=== PATIENT | male | born 1960 | race Caucasian/White ===

== ENCOUNTER 2016-08-14 12:58 | Outpatient (CLI) | payer MEDICARE | END 2016-08-14 12:59 | disposition home or self-care (01) | LOC: DI 12:58 | PROVIDERS: ATTEND Internal Medicine | DX: I42.9 Cardiomyopathy, unspecified (principal); I51.7 Cardiomegaly | CPT/HCPCS: 93306 ==

== ENCOUNTER 2016-10-10 09:28 | Outpatient (CLI) | payer MEDICARE ==
[2016-10-10 18:00] LABS: BASOPHILS % (AUTO) 0.3 %; EOSINOPHILS # (AUTO) 0.3 10^3/uL (0.0-0.7); EOSINOPHILS % (AUTO) 3.9 %; HCT - HEMATOCRIT 46.2 % (42.0-52.0); HGB - HEMOGLOBIN 15.3 g/dL (14.0-18.0); LYMPHOCYTES # (AUTO) 1.8 10^3/uL (1.5-3.5); LYMPHOCYTES % (AUTO) 26.5 %; MEAN CORPUSCULAR HEMOGLOBIN 32.7 pg (27.0-31.0); MEAN CORPUSCULAR HGB CONC 33.1 g/dL (32.0-36.0); MEAN PLATELET VOLUME 10.6 fL (7.4-11.4); MONOCYTES # (AUTO) 0.5 10^3/uL (0.0-1.0); MONOCYTES % (AUTO) 7.7 %; NEUTROPHILS # (AUTO) 4.3 10^3/uL (1.5-6.6); NEUTROPHILS % (AUTO) 61.6 %; NUCLEATED RED BLOOD CELLS AUTO 0.1 /100WBC; RED BLOOD COUNT 4.67 10^6/uL (4.70-6.10); RED CELL DISTRIBUTION WIDTH 13.6 % (12.0-15.0); UNCORRECTED WHITE BLOOD COUNT 6.9 x10^3/uL; WHITE BLOOD COUNT 6.9 x10^3/uL (4.8-10.8)
[2016-10-10 18:28] LABS: ALBUMIN/GLOBULIN RATIO 1.7 (1.0-2.2); BILIRUBIN,TOTAL 0.8 mg/dL (0.2-1.0); BUN - BLOOD UREA NITROGEN 17 mg/dL (6-20); CALCIUM 9.5 mg/dL (8.5-10.3); CARBON DIOXIDE - CO2 28 mmol/L (21-32); CHLORIDE 99 mmol/L (101-111); CHOL/HDL RATIO 4.3 (<5.0); CHOLESTEROL 211 mg/dL; CREATININE 0.7 mg/dL (0.6-1.2); GFR - MDRD 116 (>89); GLUCOSE 336 mg/dL (70-100); HDL CHOLESTEROL 49 mg/dL; POTASSIUM 5.1 mmol/L (3.5-5.0); SODIUM 136 mmol/L (135-145); TOTAL PROTEIN 7.8 g/dL (6.7-8.2); TRIGLYCERIDES 77 mg/dL; VLDL CHOLESTEROL 15 mg/dL
[2016-10-10 18:33] LABS: HEMOGLOBIN A1C 1.22 g/dL
== END 2016-10-10 09:29 | disposition home or self-care (01) ==
LOC: LAB.F 09:28
PROVIDERS: ATTEND Nurse Practitioner Family
DX: E10.9 Type 1 diabetes mellitus without complications (principal); I10 Essential (primary) hypertension
CPT/HCPCS: 36415; 80053; 80061; 82043; 83036; 84443; 85025

== ENCOUNTER 2016-10-29 08:00 | Outpatient (CLI) | payer MEDICARE ==
[2016-10-29 18:01] LABS: CALCIUM 9.2 mg/dL (8.5-10.3); CREATININE 0.7 mg/dL (0.6-1.2); POTASSIUM 4.2 mmol/L (3.5-5.0)
== END 2016-10-29 08:01 | disposition home or self-care (01) ==
LOC: LAB.F 08:00
PROVIDERS: ATTEND Nurse Practitioner Family
DX: E87.5 Hyperkalemia (principal)
CPT/HCPCS: 36415; 80048

== ENCOUNTER 2017-11-13 09:04 | Outpatient (CLI) | payer MEDICARE ==
[2017-11-13 17:35] LABS: ALBUMIN 4.5 g/dL (3.2-5.5); ALBUMIN/GLOBULIN RATIO 1.5 (1.0-2.2); ALKALINE PHOSPHATASE 79 IU/L (42-121); ALT ALANINE AMINOTRANSFERASE 21 IU/L (10-60); AST ASPARTATE AMINOTRANSFERASE 21 IU/L (10-42); BILIRUBIN,TOTAL 0.6 mg/dL (0.2-1.0); BUN - BLOOD UREA NITROGEN 16 mg/dL (6-20); CALCIUM 9.2 mg/dL (8.5-10.3); CARBON DIOXIDE - CO2 29 mmol/L (21-32); CHLORIDE 100 mmol/L (101-111); CHOL/HDL RATIO 3.4 (<5.0); CHOLESTEROL 182 mg/dL; CREATININE 0.6 mg/dL (0.6-1.2); GFR - MDRD 138 (>89); GLUCOSE 197 mg/dL (70-100); HDL CHOLESTEROL 53 mg/dL; LDL CHOLESTEROL,CALCULATED 116 mg/dL; LDL/HDL RATIO 2.2 (<3.6); SODIUM 137 mmol/L (135-145); TOTAL PROTEIN 7.5 g/dL (6.7-8.2); VLDL CHOLESTEROL 13 mg/dL
[2017-11-13 18:41] LABS: HB2 TOTAL 15.7 g/dL; HEMOGLOBIN A1C 0.97 g/dL; HEMOGLOBIN A1C % 7.8 % (4.6-6.2)
== END 2017-11-13 09:05 | disposition home or self-care (01) ==
LOC: LAB.F 09:04
PROVIDERS: ATTEND Nurse Practitioner Family
DX: E78.5 Hyperlipidemia, unspecified (principal); E10.9 Type 1 diabetes mellitus without complications; I10 Essential (primary) hypertension; I48.91 Unspecified atrial fibrillation
CPT/HCPCS: 36415; 80053; 80061; 82043; 83036; 83721; 84443

== ENCOUNTER 2018-06-14 22:56 | Emergency (ER) | payer MEDICARE ==
--- NOTE | 2018-06-15 00:16 | ED Physician Documentation ---
PD HPI NVD - Stated complaint Stated Complaint: VOMITING - Chief complaint Chief Complaint: Abd Pain - History obtained from History obtained from: Patient - History of Present Illness Timing - onset: Enter time (07:00), Today Timing - details: Abrupt onset, Waxing and waning Associated symptoms: Near syncope / syncope. No: Fever Similar symptoms before: Has not had sx before Recently seen: Not recently seen - Additonal information Additional information: nausea, vomiting since 7 AM. tonight, was lying on couch and felt nauseas, stood up and on way to bathroom he became lightheaded, went to ground (doesnt think he lost consciousness). he subsequently has developed generalized headache. Review of Systems Constitutional: reports: Reviewed and negative Eyes: reports: Reviewed and negative Cardiac: reports: Reviewed and negative Respiratory: reports: Reviewed and negative GI: reports: Nausea, Vomiting. denies: Abdominal Pain Musculoskeletal: denies: Neck pain Neurologic: reports: Headache. denies: Generalized weakness, Focal weakness, Numbness, Altered mental status, LOC PD PAST MEDICAL HISTORY - Past Medical History Cardiovascular: Hypertension, Atrial fibrillation Respiratory: None Endocrine/Autoimmune: Type 1 diabetes GI: None : None HEENT: None Psych: None Musculoskeletal: Other Derm: None - Past Surgical History Past Surgical History: Yes Ortho: Other - Present Medications Home Medications: Ambulatory Orders Medication Instructions Recorded Confirmed Insulin Aspart [Novolog] 3 - 12 unit SQ TIDWM 04/14/14 01/05/15 Insulin Glargine [Lantus Solostar] 22 unit SUBQ QPM 04/14/14 01/05/15 Lisinopril 5 mg PO DAILY 04/14/14 07/25/15 Rivaroxaban [Xarelto] 20 mg PO QDDINNER 04/14/14 07/25/15 Sotalol [Betapace] 80 mg PO BID 04/14/14 07/25/15 Omeprazole [PriLOSEC] 1 tab PO DAILY 07/25/15 07/25/15 Ondansetron Odt [Zofran] 4 mg TL Q6H PRN #10 tablet 06/15/18 - Allergies Allergies/Adverse Reactions: Allergies Allergy/AdvReac Type Severity Reaction Status Date / Time No Known Drug Allergies Allergy Verified 01/05/15 16:51 - Social History Does the pt smoke?: Yes Smoking Status: Current every day smoker Does the pt drink ETOH?: No Does the pt have substance abuse?: No - Immunizations Immunizations are current?: Yes - POLST Patient has POLST: No PD ED PE NORMAL - Vitals Vital signs reviewed: Yes - General General: Alert and oriented X 3, No acute distress, Well developed/nourished - HEENT HEENT: PERRL, EOMI, Moist mucous membranes - Neck Neck: Supple, no meningeal sign, No bony TTP - Cardiac Cardiac: RRR, No murmur - Respiratory Respiratory: No respiratory distress, Clear bilaterally - Abdomen Abdomen: Soft, Non tender - Back Back: No spinal TTP - Derm Derm: Normal color, Warm and dry - Extremities Extremities: No deformity, No tenderness to palpate, Normal ROM s pain, No edema - Neuro Neuro: Alert and oriented X 3, automobile technician 2-12 intact, No motor deficit, No sensory deficit, Normal speech Results - Vitals Vitals: Oxygen O2 Source Room air - Labs Labs: Laboratory Tests 06/15/18 06/15/18 00:35 00:35 WBC 10.8 RBC 4.58 L Hgb 14.7 Hct 42.9 MCV 93.7 MCH 32.1 H MCHC 34.3 RDW 13.2 Plt Count 219 MPV 10.4 Neut # (Auto) 8.2 H Lymph # (Auto) 1.6 Phillips # (Auto) 0.8 Eos # (Auto) 0.0 Baso # (Auto) 0.1 Absolute Nucleated RBC 0.01 Nucleated RBC % 0.1 Sodium 136 Potassium 3.6 Chloride 98 L Carbon Dioxide 25 Anion Gap 13.0 BUN 18 Creatinine 0.7 Estimated GFR (MDRD) 116 Glucose 220 H Calcium 9.5 Total Bilirubin 1.2 H AST 22 ALT 23 Alkaline Phosphatase 91 Total Protein 8.2 Albumin 5.0 Globulin 3.2 Albumin/Globulin Ratio 1.6 Lipase 20 L Serum Ketones NEGATIVE - Rads (name of study) CT head Radiology: Prelim report reviewed, See rad report PD MEDICAL DECISION MAKING - ED course Complexity details: reviewed results, re-evaluated patient, considered differential, d/w patient Departure - Departure Disposition: 01 Home, Self Care Clinical Impression: Vomiting, Head injury Condition: Good Instructions: ED Nausea Vomiting Follow-Up: Dulce Le ARNP [Provider Admit Priv/Credential] - Prescriptions: Ondansetron Odt [Zofran] 4 mg TL Q6H PRN #10 tablet PRN Reason: Nausea / Vomiting Discharge Date/Time: 06/15/18 05:29
[2018-06-15] MEDS ORDERED: SODIUM CHLORIDE 0.9% 1,000 ML IV STA ×2 (00:33→00:35)
[2018-06-15] MEDS ORDERED: ONDANSETRON 4 MG/2 ML VIAL IVP STA ×2 (00:33→03:25)
[2018-06-15 00:57] LABS: BASOPHILS # (AUTO) 0.1 10^3/uL (0.0-0.1); BASOPHILS % (AUTO) 0.7 %; EOSINOPHILS % (AUTO) 0.3 %; HGB - HEMOGLOBIN 14.7 g/dL (14.0-18.0); KETONES, SERUM (ACETEST) NEGATIVE (NEGATIVE); LYMPHOCYTES # (AUTO) 1.6 10^3/uL (1.5-3.5); LYMPHOCYTES % (AUTO) 15.2 %; MEAN CORPUSCULAR HEMOGLOBIN 32.1 pg (27.0-31.0); MEAN CORPUSCULAR HGB CONC 34.3 g/dL (32.0-36.0); MEAN CORPUSCULAR VOLUME 93.7 fL (80.0-94.0); MEAN PLATELET VOLUME 10.4 fL (7.4-11.4); MONOCYTES # (AUTO) 0.8 10^3/uL (0.0-1.0); MONOCYTES % (AUTO) 7.6 %; NEUTROPHILS # (AUTO) 8.2 10^3/uL (1.5-6.6); NEUTROPHILS % (AUTO) 76.2 %; PLT - PLATELET COUNT 219 10^3/uL (130-450); RED BLOOD COUNT 4.58 10^6/uL (4.70-6.10); RED CELL DISTRIBUTION WIDTH 13.2 % (12.0-15.0); WHITE BLOOD COUNT 10.8 x10^3/uL (4.8-10.8)
[2018-06-15 01:04] LABS: ALBUMIN/GLOBULIN RATIO 1.6 (1.0-2.2); ALKALINE PHOSPHATASE 91 IU/L (42-121); ALT ALANINE AMINOTRANSFERASE 23 IU/L (10-60); AST ASPARTATE AMINOTRANSFERASE 22 IU/L (10-42); BILIRUBIN,TOTAL 1.2 mg/dL (0.2-1.0); BUN - BLOOD UREA NITROGEN 18 mg/dL (6-20); CALCIUM 9.5 mg/dL (8.5-10.3); CARBON DIOXIDE - CO2 25 mmol/L (21-32); CHLORIDE 98 mmol/L (101-111); CREATININE 0.7 mg/dL (0.6-1.2); GFR - MDRD 116 (>89); GLUCOSE 220 mg/dL (70-100); LIPASE 20 U/L (22-51); SODIUM 136 mmol/L (135-145); TOTAL PROTEIN 8.2 g/dL (6.7-8.2)
--- NOTE | 2018-06-15 01:05 | CT Report ---
Reason: head injury, headache, blood thinners Procedure Date: 06/15/2018 Accession Number: [id number] / [id number] Procedure: CT - HEAD WO CPT Code: FULL RESULT: EXAM: CT HEAD EXAM DATE: 06/15/2018 12:52 AM. CLINICAL HISTORY: Head injury, headache, blood thinners. COMPARISON: HEAD W/O 01/05/2015 4:54 PM. TECHNIQUE: Multiaxial CT images were obtained from the foramen magnum to the vertex. Reformats: Sagittal and coronal. IV contrast: None. In accordance with CT protocol optimization, one or more of the following dose reduction techniques were utilized for this exam: automated exposure control, adjustment of mA and/or KV based on patient size, or use of iterative reconstructive technique. FINDINGS: Parenchyma: No intraparenchymal hemorrhage. No evidence of mass, midline shift, or CT findings of infarction. López-white differentiation is distinct. Extraaxial Spaces: Normal for age. No subdural or epidural collections identified. Ventricles: Normal in size and position. Sinuses and Orbits: Imaged paranasal sinuses, orbits, and mastoids show no significant abnormality. Bones: No evidence of fracture or calvarial defect. IMPRESSION: Normal head CT. RADIA
[2018-06-15] MEDS ORDERED: ONDANSETRON ODT 4 MG Prepack 2 TL PRN (03:25)
[2018-06-15 04:59] VITALS: BP 129/66
== END 2018-06-15 05:29 | disposition home or self-care (01) ==
LOC: ED 22:56
DX: R11.10 Vomiting, unspecified (principal); S09.90XA Unspecified injury of head, initial encounter; W18.30XA Fall on same level, unspecified, initial encounter; Y93.01 Activity, walking, marching and hiking; I10 Essential (primary) hypertension; E10.9 Type 1 diabetes mellitus without complications; I48.91 Unspecified atrial fibrillation; F17.200 Nicotine dependence, unspecified, uncomplicated; Z79.01 Long term (current) use of anticoagulants
CPT/HCPCS: 36415; 70450; 80053; 82009; 83690; 85025; 96361; 96374; 96376; 99283; 99284

== ENCOUNTER 2018-12-11 09:08 | Outpatient (CLI) | payer MEDICARE ==
[2018-12-11 18:06] LABS: ALBUMIN 4.6 g/dL (3.2-5.5); ALBUMIN/GLOBULIN RATIO 1.4 (1.0-2.2); ALKALINE PHOSPHATASE 69 IU/L (42-121); ALT ALANINE AMINOTRANSFERASE 37 IU/L (10-60); AST ASPARTATE AMINOTRANSFERASE 35 IU/L (10-42); BILIRUBIN,TOTAL 0.9 mg/dL (0.2-1.0); BUN - BLOOD UREA NITROGEN 12 mg/dL (6-20); CALCIUM 9.2 mg/dL (8.5-10.3); CARBON DIOXIDE - CO2 30 mmol/L (21-32); CHLORIDE 101 mmol/L (101-111); CHOL/HDL RATIO 3.1 (<5.0); CHOLESTEROL 179 mg/dL; CREATININE 0.7 mg/dL (0.6-1.2); GFR - MDRD 115 (>89); GLUCOSE 277 mg/dL (70-100); HDL CHOLESTEROL 57 mg/dL; LDL CHOLESTEROL,CALCULATED 110 mg/dL; LDL/HDL RATIO 1.9 (<3.6); SODIUM 140 mmol/L (135-145); TOTAL PROTEIN 7.8 g/dL (6.7-8.2); VLDL CHOLESTEROL 12 mg/dL
[2018-12-11 18:29] LABS: HEMOGLOBIN A1C 0.97 g/dL; HEMOGLOBIN A1C % 8.1 % (4.6-6.2)
== END 2018-12-11 09:09 | disposition home or self-care (01) ==
LOC: LAB.S 09:08
PROVIDERS: ATTEND Internal Medicine
DX: E11.9 Type 2 diabetes mellitus without complications (principal)
CPT/HCPCS: 36415; 80053; 80061; 83036; 83721

== ENCOUNTER 2019-03-30 13:50 | Outpatient (CLI) | payer MEDICARE ==
[2019-03-30 17:32] LABS: HB2 TOTAL 14.6 g/dL; HEMOGLOBIN A1C 0.96 g/dL; HEMOGLOBIN A1C % 8.2 % (4.6-6.2)
== END 2019-03-30 13:51 | disposition home or self-care (01) ==
LOC: LAB.S 13:50
PROVIDERS: ATTEND Internal Medicine
DX: E11.9 Type 2 diabetes mellitus without complications (principal); Z79.4 Long term (current) use of insulin
CPT/HCPCS: 36415; 83036

== ENCOUNTER 2019-08-23 16:03 | Outpatient (CLI) | payer MEDICARE | END 2019-08-23 16:04 | disposition short-term general hospital (02) | LOC: EMS 16:03 | PROVIDERS: ATTEND Surgery | DX: S09.93XA Unspecified injury of face, initial encounter (principal); R73.09 Other abnormal glucose; R55 Syncope and collapse; W18.39XA Other fall on same level, initial encounter; W22.8XXA Striking against or struck by other objects, initial encounter; Y92.009 Unspecified place in unspecified non-institutional (private) residence as the place of occurrence of the external cause; Z79.01 Long term (current) use of anticoagulants | CPT/HCPCS: A0425; A0427 ==

== ENCOUNTER 2019-12-23 08:53 | Outpatient (CLI) | payer MEDICARE ==
[2019-12-23 15:28] LABS: BASOPHILS # (AUTO) 0.1 10^3/uL (0.0-0.1); BASOPHILS % (AUTO) 0.7 %; EOSINOPHILS # (AUTO) 0.4 10^3/uL (0.0-0.7); EOSINOPHILS % (AUTO) 4.7 %; HGB - HEMOGLOBIN 14.6 g/dL (14.0-18.0); LYMPHOCYTES # (AUTO) 1.8 10^3/uL (1.5-3.5); LYMPHOCYTES % (AUTO) 22.7 %; MEAN CORPUSCULAR HEMOGLOBIN 32.2 pg (27.0-31.0); MEAN CORPUSCULAR HGB CONC 32.9 g/dL (32.0-36.0); MEAN CORPUSCULAR VOLUME 97.8 fL (80.0-94.0); MEAN PLATELET VOLUME 12.4 fL (7.4-11.4); MONOCYTES # (AUTO) 0.5 10^3/uL (0.0-1.0); MONOCYTES % (AUTO) 6.7 %; NEUTROPHILS # (AUTO) 5.2 10^3/uL (1.5-6.6); PLT - PLATELET COUNT 291 10^3/uL (130-450); RED BLOOD COUNT 4.54 10^6/uL (4.70-6.10); RED CELL DISTRIBUTION WIDTH 12.6 % (12.0-15.0); WHITE BLOOD COUNT 8.1 x10^3/uL (4.8-10.8)
[2019-12-23 15:42] LABS: CREATININE,URINE 197.4 mg/dL; MICROALBUM/CREATININE RATIO,UR 51.2 ug/mg (<30.0); MICROALBUMIN,URINE 10.1 mg/dL (0-300.0)
[2019-12-23 16:00] LABS: ALBUMIN 4.4 g/dL (3.2-5.5); ALBUMIN/GLOBULIN RATIO 1.4 (1.0-2.2); ALKALINE PHOSPHATASE 63 IU/L (42-121); ALT ALANINE AMINOTRANSFERASE 18 IU/L (10-60); AST ASPARTATE AMINOTRANSFERASE 19 IU/L (10-42); BILIRUBIN,TOTAL 0.6 mg/dL (0.2-1.0); BUN - BLOOD UREA NITROGEN 16 mg/dL (6-20); CALCIUM 9.2 mg/dL (8.5-10.3); CARBON DIOXIDE - CO2 26 mmol/L (21-32); CHLORIDE 102 mmol/L (101-111); CHOLESTEROL 201 mg/dL; CREATININE 0.6 mg/dL (0.6-1.2); GLUCOSE 238 mg/dL (70-100); HDL CHOLESTEROL 66 mg/dL; LDL CHOLESTEROL,CALCULATED 118 mg/dL; LDL/HDL RATIO 1.8 (<3.6); SODIUM 135 mmol/L (135-145); TOTAL PROTEIN 7.5 g/dL (6.7-8.2); VLDL CHOLESTEROL 17 mg/dL
[2019-12-23 19:21] LABS: HEMOGLOBIN A1c% 10.2 % (4.27-6.07)
== END 2019-12-23 08:54 | disposition home or self-care (01) ==
LOC: LAB.S 08:53
PROVIDERS: ATTEND Internal Medicine
DX: E11.9 Type 2 diabetes mellitus without complications (principal); Z79.4 Long term (current) use of insulin
CPT/HCPCS: 36415; 80053; 80061; 82043; 82570; 83036; 83721; 84443; 85025

== ENCOUNTER 2020-07-03 09:15 | Outpatient (CLI) | payer MEDICARE ==
[2020-07-03 14:13] LABS: BASOPHILS # (AUTO) 0.1 10^3/uL (0.0-0.1); BASOPHILS % (AUTO) 0.9 %; EOSINOPHILS # (AUTO) 0.4 10^3/uL (0.0-0.7); EOSINOPHILS % (AUTO) 4.1 %; HGB - HEMOGLOBIN 14.3 g/dL (14.0-18.0); LYMPHOCYTES # (AUTO) 1.5 10^3/uL (1.5-3.5); MEAN CORPUSCULAR HEMOGLOBIN 32.4 pg (27.0-31.0); MEAN CORPUSCULAR HGB CONC 31.8 g/dL (32.0-36.0); MEAN CORPUSCULAR VOLUME 101.8 fL (80.0-94.0); MEAN PLATELET VOLUME 13.4 fL (7.4-11.4); MONOCYTES # (AUTO) 0.7 10^3/uL (0.0-1.0); MONOCYTES % (AUTO) 7.9 %; NEUTROPHILS # (AUTO) 6.2 10^3/uL (1.5-6.6); NEUTROPHILS % (AUTO) 69.8 %; PLT - PLATELET COUNT 233 10^3/uL (130-450); RED BLOOD COUNT 4.42 10^6/uL (4.70-6.10); RED CELL DISTRIBUTION WIDTH 13.2 % (12.0-15.0); WHITE BLOOD COUNT 8.9 x10^3/uL (4.8-10.8)
[2020-07-03 14:27] LABS: ALBUMIN 4.5 g/dL (3.2-5.5); ALBUMIN/GLOBULIN RATIO 1.4 (1.0-2.2); BILIRUBIN,TOTAL 0.8 mg/dL (0.2-1.0); CALCIUM 9.4 mg/dL (8.5-10.3); CREATININE 0.5 mg/dL (0.6-1.2); POTASSIUM 4.8 mmol/L (3.5-5.0); TOTAL PROTEIN 7.8 g/dL (6.7-8.2)
[2020-07-03 20:24] LABS: ESTIMATED AVERAGE GLUCOSE 200 mg/dL (70-100); HEMOGLOBIN A1c% 8.6 % (4.27-6.07)
== END 2020-07-03 09:16 | disposition home or self-care (01) ==
LOC: LAB.S 09:15
PROVIDERS: ATTEND Internal Medicine
DX: E10.9 Type 1 diabetes mellitus without complications (principal); Z79.01 Long term (current) use of anticoagulants
CPT/HCPCS: 36415; 80053; 83036; 85025

== ENCOUNTER 2020-08-03 16:48 | Outpatient (CLI) | payer MEDICARE, MEDICAID | END 2020-08-03 16:49 | disposition short-term general hospital (02) | LOC: EMS 16:48 | DX: G47.00 Insomnia, unspecified (principal); I49.9 Cardiac arrhythmia, unspecified; R11.0 Nausea | CPT/HCPCS: A0425; A0429 ==

== ENCOUNTER 2020-08-24 10:35 | Outpatient (CLI) | payer MEDICARE, MEDICAID | END 2020-08-24 10:36 | disposition home or self-care (01) | LOC: EMS 10:35 | DX: Z04.1 Encounter for examination and observation following transport accident (principal); R41.82 Altered mental status, unspecified ==

== ENCOUNTER 2020-09-04 12:20 | Outpatient (CLI) | payer MEDICARE, MEDICAID ==
--- NOTE | 2020-09-04 13:58 | CT Report ---
PROCEDURE: Low Dose Lung Cancer Screen INDICATIONS: HISTORY OF SMOKING TECHNIQUE: Noncontrast low-dose 5 mm thick sections acquired from the pulmonary apices to the posterior costophr enic angles. 7 mm thick coronal and sagittal MIP reformats were then acquired. For radiation dose r eduction, the following was used: automated exposure control, adjustment of mA and/or kV according t o patient size. COMPARISON: None. FINDINGS: Image quality: Excellent. Lungs and pleura: There is centrilobular emphysema and several small bulla. Within the lower lungs b ilaterally pulmonary nodules are present, right greater than left, and potentially granulomatous in o rigin. The clustering of nodules at the right lower lobe argues towards prior granulomatous etiology but follow-up is recommended. The nodules are as follows: On CT series 4 image 299 the largest nodule is present at the medial left lower lobe and this measure s up to 7 mm. A smaller 5 mm nodule is present on the same scan level at the lateral right lower lobe . On image 4/305 a 5 mm lateral right lower lobe nodule is present. On image 4/3 20 a 5 mm posterolateral right lower lobe nodule is present.On 4/3 32 lateral costophren ic sulcus right lower lobe a 3 x 7 mm nodule is present. Mediastinum: Heart size is normal. No pericardial effusion. No mediastinal adenopathy by size crit eria. Thoracic aorta and central pulmonary arteries are normal in size. Esophagus is normal in dahiana markie. No hiatal hernia. Bones and chest wall: No suspicious bony lesions. No vertebral body compression fractures. No axil marija or supraclavicular adenopathy by size criteria. The thyroid is poorly seen.. Abdomen: Visualized upper abdomen solid organs and bowel loops appear normal in the absence of contr ast. IMPRESSION: A total of 5 pulmonary nodules are identified, largest measuring up to 7 mm in diameter and 4 of the 5 nodules are present at the right lower lobe. Given these findings the lung RADS categorization score is LR3 and a 6 month follow-up noncontrast lo w-dose CT scan is recommended to assist in establishing stability of appearance over time. CLINICAL RECOMMENDATION STATEMENTS: In patients <35 years with an ITN detected on CT, MRI, or extrathyroidal ultrasound, the Committee re commends further evaluation with dedicated thyroid ultrasound if the nodule is ?1 cm and has no suspi cious imaging features, and if the patient has normal life expectancy. In patients ?35 years with an ITN detected on CT, MRI, or extrathyroidal ultrasound, the Committee re commends further evaluation with dedicated thyroid ultrasound if the nodule is ?1.5 cm and has no justyn picious imaging features, and if the patient has normal life expectancy. (ACR, 2014) Reviewed by: Jose Molina MD on 09/04/2020 1:57 PM PDT Approved by: Jose Molina MD on 09/04/2020 1:57 PM PDT Station ID: [id number]
== END 2020-09-04 12:21 | disposition home or self-care (01) ==
LOC: DI 12:20
PROVIDERS: ATTEND Internal Medicine
DX: Z12.2 Encounter for screening for malignant neoplasm of respiratory organs (principal); R91.8 Other nonspecific abnormal finding of lung field; F17.210 Nicotine dependence, cigarettes, uncomplicated

== ENCOUNTER 2020-11-11 17:55 | Outpatient (CLI) | payer MEDICARE, MEDICAID | END 2020-11-11 23:59 | disposition critical access hospital (66) | LOC: EMS 17:55 | DX: R40.4 Transient alteration of awareness (principal) | CPT/HCPCS: A0425; A0427 ==

== ENCOUNTER 2020-11-11 18:27 | Inpatient (IN) | payer MEDICARE, MEDICAID ==
--- NOTE | 2020-11-11 18:34 | ED Physician Documentation ---
History of Present Illness - Stated complaint Stated Complaint: DIABETIC ISSUE - History obtained from History obtained from: Patient - Additonal information Additional information: 60-year-old gentleman with diabetes, takes 20 units of Lantus at night and then a sliding scale during the day. He only half his lunch and then took 6 units of insulin, he became obtunded and was found to have a fingerstick blood sugar of 15. He was administered D50, and became conscious again still lethargic though. Post D50 the blood sugar was in the 180s. Review of Systems Ten Systems: 10 systems reviewed and negative Constitutional: denies: Fever, Chills Eyes: reports: Reviewed and negative Ears: reports: Reviewed and negative Nose: reports: Reviewed and negative Throat: reports: Reviewed and negative PD PAST MEDICAL HISTORY - Past Medical History Cardiovascular: Hypertension, Atrial fibrillation Respiratory: None Endocrine/Autoimmune: Type 1 diabetes GI: None : None HEENT: None Psych: None Musculoskeletal: Other Derm: None - Past Surgical History Past Surgical History: Yes Ortho: Other - Present Medications Home Medications: Ambulatory Orders Medication Instructions Recorded Confirmed Insulin Aspart [Novolog] 3 - 12 unit SQ TIDWM 04/14/14 11/11/20 Insulin Glargine [Lantus Solostar] 21 unit SUBQ QPM 04/14/14 11/11/20 Rivaroxaban [Xarelto] 20 mg PO QDDINNER 04/14/14 11/11/20 lisinopriL [Lisinopril] 5 mg PO DAILY 04/14/14 11/11/20 Metoprolol Succinate 100 mg PO DAILY 11/11/20 11/11/20 - Allergies Allergies/Adverse Reactions: Allergies Allergy/AdvReac Type Severity Reaction Status Date / Time No Known Drug Allergies Allergy Verified 11/11/20 18:30 - Social History Does the pt smoke?: Yes Smoking Status: Current every day smoker Does the pt drink ETOH?: No Does the pt have substance abuse?: No - Immunizations Immunizations are current?: Yes - POLST Patient has POLST: No PD ED PE NORMAL - Vitals Vital signs reviewed: Yes - General General: Alert and oriented X 3, Other (He is alert and oriented but slightly slow to answer questions, slightly sleepy.) - HEENT HEENT: PERRL, EOMI - Neck Neck: Supple, no meningeal sign, No bony TTP - Cardiac Cardiac: RRR, No murmur - Respiratory Respiratory: No respiratory distress, Clear bilaterally - Abdomen Abdomen: Non tender - Derm Derm: Normal color, Warm and dry - Extremities Extremities: No edema, No calf tenderness / cord - Neuro Neuro: Alert and oriented X 3, Normal speech Results - Vitals Vitals: Vital Signs - 24 hr 11/11/20 11/11/20 18:34 18:47 Temperature 35.2 C L Heart Rate 66 64 Respiratory 16 10 L Rate Blood Pressure 110/64 O2 Saturation 99 98 Oxygen O2 Source Room air - Labs Labs: Laboratory Tests 11/11/20 11/11/20 18:48 18:48 WBC 5.9 RBC 3.69 L Hgb 12.4 L Hct 37.7 L MCV 102.2 H MCH 33.6 H MCHC 32.9 RDW 13.3 Plt Count 191 MPV 10.4 Neut # (Auto) 3.7 Lymph # (Auto) 1.3 L Walton # (Auto) 0.5 Eos # (Auto) 0.4 Baso # (Auto) 0.1 Absolute Nucleated RBC 0.00 Nucleated RBC % 0.0 Sodium 143 Potassium 3.9 Chloride 105 Carbon Dioxide 30 Anion Gap 8.0 BUN 19 Creatinine 0.7 Estimated GFR (MDRD) 115 Glucose 82 Calcium 8.8 Ethyl Alcohol < 5.0 PD MEDICAL DECISION MAKING - ED course ED course: 60-year-old gentleman who is a diabetic on insulin presents after an episode of obtundation with hypoglycemia. Initial blood sugar was 15. It went up after D50 but then started trending down again. He still felt foggy and symptomatic. He lives alone. As such the decision was made to place him in observation and I spoke with Dr. Garay for same at 8:28 PM. Departure - Departure Disposition: ED Place in Observation Clinical Impression: Hypoglycemia Condition: Stable
[2020-11-11 18:53] LABS: BASOPHILS # (AUTO) 0.1 10^3/uL (0.0-0.1); BASOPHILS % (AUTO) 0.8 %; EOSINOPHILS # (AUTO) 0.4 10^3/uL (0.0-0.7); EOSINOPHILS % (AUTO) 5.9 %; HCT - HEMATOCRIT 37.7 % (42.0-52.0); HGB - HEMOGLOBIN 12.4 g/dL (14.0-18.0); LYMPHOCYTES # (AUTO) 1.3 10^3/uL (1.5-3.5); LYMPHOCYTES % (AUTO) 22.6 %; MEAN CORPUSCULAR HEMOGLOBIN 33.6 pg (27.0-31.0); MEAN CORPUSCULAR HGB CONC 32.9 g/dL (32.0-36.0); MEAN CORPUSCULAR VOLUME 102.2 fL (80.0-94.0); MEAN PLATELET VOLUME 10.4 fL (7.4-11.4); MONOCYTES # (AUTO) 0.5 10^3/uL (0.0-1.0); MONOCYTES % (AUTO) 8.4 %; NEUTROPHILS # (AUTO) 3.7 10^3/uL (1.5-6.6); PLT - PLATELET COUNT 191 10^3/uL (130-450); RED BLOOD COUNT 3.69 10^6/uL (4.70-6.10); RED CELL DISTRIBUTION WIDTH 13.3 % (12.0-15.0); WHITE BLOOD COUNT 5.9 x10^3/uL (4.8-10.8)
[2020-11-11 19:04] LABS: BUN - BLOOD UREA NITROGEN 19 mg/dL (6-20); CALCIUM 8.8 mg/dL (8.5-10.3); CARBON DIOXIDE - CO2 30 mmol/L (21-32); CHLORIDE 105 mmol/L (101-111); CREATININE 0.7 mg/dL (0.6-1.2); ETOH - ETHANOL < 5.0 mg/dL; GFR - MDRD 115 (>89); GLUCOSE 82 mg/dL (70-100); POTASSIUM 3.9 mmol/L (3.5-5.0); SODIUM 143 mmol/L (135-145)
--- NOTE | 2020-11-11 20:42 | HISTORY & PHYSICAL EXAMINATION ---
Chief Complaint - Chief Complaint Chief Complaint: Hypoglycemia History of Present Illness - Admitted From Admitted From:: ED - History Obtained From History obtained from: ED provider and the patient - History of Present Illness HPI Comment/Other: This is a 60-year-old white male with a history of insulin-dependent diabetes, A. fib on Xarelto and history of hypertension. He has had hypoglycemia 3-4 years ago from taking his Insulin dose but not eating. The patient presented to the ED by ambulance. He was at home with friends and they noticed he was acting confused and sleepy and they called 911. His fingerstick glucose checked by paramedics was 15. They administered D50 and his glucose went up to 180. In the ED, his serum glucose again dropped to 70 and then on repeat was 80 and the patient continued to have fogginess. He states that he took his usual Insulin amounts but only ate half of his usual meal, but denied N/V/D abdominal pain, fever or any other symptoms. He is being placed in Observation status to monitor glucoses frequently overnight so that there are no further severe drops in serum glucose levels. History - Past Medical History Cardiovascular: reports: Hypertension, Atrial fibrillation Respiratory: reports: None Neuro: reports: Headaches, Peripheral neuropathy Endocrine/Autoimmune: reports: Type 1 diabetes GI: reports: None : reports: None HEENT: reports: None Psych: reports: None Musculoskeletal: reports: Other (Dupyutrens contractures of both hands, S/P 6 pereira rgeries that did not work, and for this he is on Disability.) Derm: reports: None MRSA Hx?: No - Past Surgical History Ortho: reports: Other (6 surgeries for Dupytren's contractures of hands.) - Family & Social History Family History Comment/Other: He has no children Living arrangement: At home Living Situation: Alone Social History Notes: He lives alone. He is able to drive a car. He smokes 1/3 pack cigarettes a day, drinks no alcohol, occasionally uses marijuana but no illicit drug use. - Substance History Use: Uses substance without health or social issues: Tobacco, Cannabis - POLST Patient has POLST: No Meds/Allgy - Home Medications Home Medications: Ambulatory Orders Medication Instructions Recorded Confirmed Insulin Aspart [Novolog] 3 - 12 unit SQ TIDWM 04/14/14 11/11/20 Insulin Glargine [Lantus Solostar] 21 unit SUBQ QPM 04/14/14 11/11/20 Rivaroxaban [Xarelto] 20 mg PO QDDINNER 04/14/14 11/11/20 lisinopriL [Lisinopril] 5 mg PO DAILY 04/14/14 11/11/20 Metoprolol Succinate 100 mg PO DAILY 11/11/20 11/11/20 - Allergies Allergies/Adverse Reactions: Allergies Allergy/AdvReac Type Severity Reaction Status Date / Time No Known Drug Allergies Allergy Verified 11/11/20 18:30 Review of Systems - Cardiovascular Cariovascular: reports: Irregular heart rate (He denies any complaints of palpitations. 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 who has now retired and his PCP handles all his meds.) - Neurological Neurological: reports: Other (Feels "foggy" and speaking slowly) - All Other Systems All Other Systems: reports: Reviewed and negative Exam - Vital Signs Reviewed Vital Signs: Yes Vital Signs: Vital Signs x48h Temp Pulse Resp BP Pulse Ox 11/11/20 20:38 65 16 109/74 100 11/11/20 18:47 64 10 L 98 11/11/20 18:34 35.2 C L 66 16 110/64 99 - Physical Exam General Appearance: positive: No acute distress, Alert Eyes Bilateral: positive: Normal inspection, EOMI ENT: positive: ENT inspection nml, No signs of dehydration Neck: positive: Nml inspection, No JVD Respiratory: positive: No respiratory distress, Breath sounds nml Cardiovascular: positive: Regular rate & rhythm, No murmur Abdomen: positive: Non-tender, Nml bowel sounds, No distention Skin: positive: Warm, Dry Extremities: positive: Non-tender, No pedal edema Neurologic/Psychiatric: positive: Oriented x3 (Slow in responding but speech is normal) Conclusion/Plan - Problem List (1) Hypoglycemia Conclusion/Plan: Will monitor fingerstick checks closely, every 2 hours. The last several serum glucose levels were 70 then 80 then 150. If there is another trend of glu downward, will start overnight hydration with D5W iv. Initiate hypoglycemia protocol. Will begin a carb controlled diet and only sliding scale insulin coverage, no long-acting insulin while here. (2) IDDM (insulin dependent diabetes mellitus) Conclusion/Plan: (E11.9) Will obtain A1c with morning labs. If he is over-correcting and has a low A1c, would decrease his Lantus and ss doses at discharge. Will use short acting insulin only currently. Will start a carb-controlled diet and follow fingerstick glucose checks frequently. Will request Nutrition consult regarding recurrence of hypoglycemia, to get at the details of why this is happening for him. He did mention that [place] [facility] [facility] [facility] [place] the sliding scale to follow and he "lost it". Perhaps, he is dosing incorrectly. He also stated that he is fishing more, now that fishing opened and is allowed. Perhaps the increased physical activity is adding to lower serum glu levels. Overall, I suspect he will need lower amounts of his Lantus Insulin and a lower sliding scale of short acting Insulin. (3) HTN (hypertension) Conclusion/Plan: Blood pressure is stable. Plan on continuing his losartan, and metoprolol, hold parameters written for. (4) Afib Conclusion/Plan: He had no EKG done as there are currently no cardio-pulmonary symptoms/complaints. By exam, he is currently is sinus rhythm. Plan on continuing his metoprolol for rate control and Xarelto for stroke prophylaxis. - Lab Results Fish Bones: 11/11/20 18:48 11/11/20 18:48
[2020-11-11 21:26] LABS: B. PARAPERTUSSIS- RESP PCR PAN NOT DETECTED; B. PERTUSSIS- RESP PCR PANEL NOT DETECTED; C. PNEUMONIAE- RESP PCR PANEL NOT DETECTED; CORONAVIRUS 229E-RESP PCR NOT DETECTED; CORONAVIRUS HKU1-RESP PCR NOT DETECTED; CORONAVIRUS NL63-RESP PCR NOT DETECTED; CORONAVIRUS OC43-RESP PCR NOT DETECTED; HUMAN METAPNEUMOVIRUS NOT DETECTED; INFLUENZA A- RESP PCR PANEL NOT DETECTED; INFLUENZA B - RESP PCR PANEL NOT DETECTED; M. PNEUMONIAE- RESP PCR PANEL NOT DETECTED; PARAINFLUENZA VIRUS 1 NOT DETECTED; PARAINFLUENZA VIRUS 2 NOT DETECTED; PARAINFLUENZA VIRUS 3 NOT DETECTED; PARAINFLUENZA VIRUS 4 NOT DETECTED; RHINOVIRUS/ENTEROVIRUS NOT DETECTED; RSV- RESP PCR PANEL NOT DETECTED; SARS-CoV-2 -RESP PCR PANEL NOT DETECTED
[2020-11-11] MEDS: INSULIN ASPART 300 UNIT/3 ML PEN SUBQ SCH (22:04)
[2020-11-11] MEDS: NICOTINE 7 MG PATCH TOP SCH (22:34)
[2020-11-11] MEDS ORDERED: DEXTROSE 5% 1,000 ML IV SCH (23:00)
[2020-11-12] MEDS: INSULIN ASPART 300 UNIT/3 ML PEN SUBQ SCH ×5 (00:46→21:00)
[2020-11-12] MEDS: SODIUM CHLORIDE FLUSH 0.9% 10 ML SYRINGE IVP SCH ×3 (00:53→17:01)
[2020-11-12 07:19] LABS: CALCIUM 8.3 mg/dL (8.5-10.3); CREATININE 0.7 mg/dL (0.6-1.2)
[2020-11-12] MEDS: NICOTINE 7 MG PATCH TOP SCH (08:10)
[2020-11-12] MEDS: METOPROLOL SUCCINATE 50 MG TABLET PO SCH (08:12)
[2020-11-12] MEDS ORDERED: NON FORMULARY MED (Metoprolol Succinate [Metoprolol Succinate] 100 MG Tab.Er.24h) PO SCH (09:00)
[2020-11-12] MEDS ORDERED: lisinopriL 5 MG TABLET PO SCH (09:00)
--- NOTE | 2020-11-12 09:08 | PHARMACY PROGRESS NOTE ---
- Best Possible Medication History Admit Date and Time: 11/11/202032 Processed by: Nursing Medication History completed: Yes Med rec completed by nursing - pharmacy updated lisinopril strength based on recent fill information As the person ultimately responsible for medication therapy, providers are able to order a medication from an existing home medication list in [facility] via the "Reconcile Routine" prior to Confirmation of that medication by desktop support associate. Such practice is discouraged except when the physician, in their clinical judgment, deems that a medical need exists for a medication without regard to previous use.
[2020-11-12 11:18] LABS: ESTIMATED AVERAGE GLUCOSE 192 mg/dL (70-100); HEMOGLOBIN A1c% 8.3 % (4.27-6.07)
[2020-11-12] MEDS: SODIUM CHLORIDE FLUSH 0.9% 10 ML SYRINGE IVP PRN (11:40)
[2020-11-12] MEDS: ONDANSETRON 4 MG/2 ML VIAL IVP PRN (11:40)
[2020-11-12] MEDS ORDERED: PROMETHAZINE INJ 25 MG in SODIUM CHLORIDE 0.9% 50 ML IV PRN (12:38)
[2020-11-12] MEDS: lisinopriL 20 MG TABLET PO SCH (13:03)
[2020-11-12] MEDS: SODIUM CHLORIDE 0.9% 1,000 ML IV SCH (13:04)
[2020-11-12] MEDS: METOPROLOL 5 MG/5 ML VIAL IVP PRN (14:02)
--- NOTE | 2020-11-12 14:08 | PROVIDER PROGRESS NOTE ---
Subjective - Prog Note Date Prog Note Date: 11/12/20 Prog Note Time: 14:05 - Subjective Pt reports feeling: No change (Patient was feeling low bit lightheaded this morning, he had some nausea and vomiting later on, which has since resolved by this afternoon at the time of progress note dictation) Current Medications - Current Medications Current Medications: Current Medications Generic Name Dose Route Start Last Admin Trade Name Freq PRN Reason Stop Dose Admin Dextrose 1,000 mls @ 50 mls/hr 11/11/20 23:00 11/12/20 08:11 D5w IV Not Given .Q20H ALIZE Sodium Chloride 1,000 mls @ 83.333 mls/hr 11/12/20 13:00 11/12/20 13:04 Normal Saline 0.9% IV 83.333 mls/hr .Q12H ALIZE Administration Insulin Aspart 1 - 5 unit 11/11/20 21:00 11/12/20 11:50 Insulin Aspart 300 Unit/3 Ml Pen SUBQ 5 unit 0800,1200,1700,2100 ALIZE Administration Protocol Lisinopril 5 mg 11/12/20 09:00 11/12/20 08:12 Lisinopril 5 Mg Tablet PO 5 mg DAILY ALIZE Administration Lisinopril 20 mg 11/12/20 13:00 11/12/20 13:03 Lisinopril 20 Mg Tablet PO 20 mg DAILY ALIZE Administration Metoprolol Succinate 100 mg 11/12/20 09:00 11/12/20 08:12 Metoprolol Succinate 50 Mg Tablet PO 100 mg DAILY ALIZE Administration Metoprolol Tartrate 5 mg 11/12/20 13:52 11/12/20 14:02 Metoprolol 5 Mg/5 Ml Vial IVP 5 mg Q6H PRN Administration Tachycardia Nicotine 1 patch 11/11/20 22:20 11/12/20 08:10 Nicotine 7 Mg Patch TOP 1 patch DAILY ALIZE Administration Ondansetron HCl 4 mg 11/11/20 20:34 11/12/20 11:40 Ondansetron 4 Mg/2 Ml Vial IVP 4 mg Q6HR PRN Administration Nausea / Vomiting Sodium Chloride 10 ml 11/11/20 20:34 11/12/20 11:40 Sodium Chloride Flush 0.9% 10 Ml Syringe IVP 10 ml PRN PRN Administration NEEDED PER PROVIDER ORDERS Sodium Chloride 10 ml 11/12/20 01:00 11/12/20 08:12 Sodium Chloride Flush 0.9% 10 Ml Syringe IVP 10 ml 0100,0900,1700 [facility], [facility] Administration Objective - Vital Signs/Intake & Output Reviewed Vital Signs: Yes Vital Signs: Vital Signs x48h Temp Pulse Resp BP BP BP Pulse Ox 11/12/20 14:02 134/82 H 11/12/20 11:36 36.5 C 122 H 96 H 144/91 H 20 L 11/12/20 07:48 36.7 C 71 18 145/83 H 97 11/12/20 06:23 36.6 C 71 16 140/79 H 95 Intake & Output: Intake & Output 11/09/20 11/10/20 11/11/20 11/12/20 23:59 23:59 23:59 23:59 Intake Total 500 516 Output Total 2200 Balance 500 -1684 - Objective General Appearance: positive: No acute distress Eyes Bilateral: positive: Normal inspection ENT: positive: ENT inspection nml Neck: positive: Nml inspection Respiratory: positive: Chest non-tender, No respiratory distress, Breath sounds nml Cardiovascular: positive: No murmur, No gallop, Irregularly irregular Abdomen: positive: Non-tender, No organomegaly, Nml bowel sounds Skin: positive: Color nml Extremities: positive: Nml appearance Neurologic/Psychiatric: positive: Oriented x3, CN's nml (2-12) - Lab Results Fish Bones: 11/11/20 18:48 11/12/20 07:04 Other Labs: Lab Results x24hrs 11/12/20 11/12/20 11/11/20 Range/Units 07:04 07:04 20:31 WBC (4.8-10.8) x10^3/uL RBC (4.70-6.10) 10^6/uL Hgb (14.0-18.0) g/dL Hct (42.0-52.0) % MCV (80.0-94.0) fL MCH (27.0-31.0) pg MCHC (32.0-36.0) g/dL RDW (12.0-15.0) % Plt Count (130-450) 10^3/uL MPV (7.4-11.4) fL Neut # (Auto) (1.5-6.6) 10^3/uL Lymph # (Auto) (1.5-3.5) 10^3/uL Fillmore # (Auto) (0.0-1.0) 10^3/uL Eos # (Auto) (0.0-0.7) 10^3/uL Baso # (Auto) (0.0-0.1) 10^3/uL Absolute Nucleated RBC x10^3/uL Nucleated RBC % /100WBC Sodium 135 (135-145) mmol/L Potassium 4.0 (3.5-5.0) mmol/L Chloride 100 L (101-111) mmol/L Carbon Dioxide 27 (21-32) mmol/L Anion Gap 8.0 (6-13) BUN 20 (6-20) mg/dL Creatinine 0.7 (0.6-1.2) mg/dL Estimated GFR (MDRD) 115 (>89) Glucose 321 H (70-100) mg/dL Estimat Average Glucose 192 H (70-100) mg/dL Hemoglobin A1c % 8.3 H (4.27-6.07) % Calcium 8.3 L (8.5-10.3) mg/dL Nasal Adenovirus (PCR) NOT DETECTED Nasal B. parapertussis DNA (PCR) NOT DETECTED Nasal Coronavir 229E PCR NOT DETECTED Nasal Coronavir HKU1 PCR NOT DETECTED Nasal Coronavir NL63 PCR NOT DETECTED Nasal Coronavir OC43 PCR NOT DETECTED Nasal Enterovir/Rhinovir PCR NOT DETECTED Nasal Influenza B PCR NOT DETECTED Nasal Influenza A PCR NOT DETECTED Nasal Parainfluen 1 PCR NOT DETECTED Nasal Parainfluen 2 PCR NOT DETECTED Nasal Parainfluen 3 PCR NOT DETECTED Nasal Parainfluen 4 PCR NOT DETECTED Nasal RSV (PCR) NOT DETECTED Nasal B.pertussis DNA PCR NOT DETECTED Nasal C.pneumoniae (PCR) NOT DETECTED Donnie Human Metapneumo PCR NOT DETECTED Nasal M.pneumoniae (PCR) NOT DETECTED Nasal SARS-CoV-2 (PCR) NOT DETECTED Ethyl Alcohol mg/dL 11/11/20 11/11/20 Range/Units 18:48 18:48 WBC 5.9 (4.8-10.8) x10^3/uL RBC 3.69 L (4.70-6.10) 10^6/uL Hgb 12.4 L (14.0-18.0) g/dL Hct 37.7 L (42.0-52.0) % MCV 102.2 H (80.0-94.0) fL MCH 33.6 H (27.0-31.0) pg MCHC 32.9 (32.0-36.0) g/dL RDW 13.3 (12.0-15.0) % Plt Count 191 (130-450) 10^3/uL MPV 10.4 (7.4-11.4) fL Neut # (Auto) 3.7 (1.5-6.6) 10^3/uL Lymph # (Auto) 1.3 L (1.5-3.5) 10^3/uL Fill[place] # (Auto) 0.5 (0.0-1.0) 10^3/uL Eos # (Auto) 0.4 (0.0-0.7) 10^3/uL Baso # (Auto) 0.1 (0.0-0.1) 10^3/uL Absolute Nucleated RBC 0.00 x10^3/uL Nucleated RBC % 0.0 /100WBC Sodium 143 (135-145) mmol/L Potassium 3.9 (3.5-5.0) mmol/L Chloride 105 (101-111) mmol/L Carbon Dioxide 30 (21-32) mmol/L Anion Gap 8.0 (6-13) BUN 19 (6-20) mg/dL Creatinine 0.7 (0.6-1.2) mg/dL Estimated GFR (MDRD) 115 (>89) Glucose 82 (70-100) mg/dL Estimat Average Glucose (70-100) mg/dL Hemoglobin A1c % (4.27-6.07) % Calcium 8.8 (8.5-10.3) mg/dL Nasal Adenovirus (PCR) Nasal B. parapertussis DNA (PCR) Nasal Coronavir 229E PCR Nasal Coronavir HKU1 PCR Nasal Coronavir NL63 PCR Nasal Coronavir OC43 PCR Nasal Enterovir/Rhinovir PCR Nasal Influenza B PCR Nasal Influenza A PCR Nasal Parainfluen 1 PCR Nasal Parainfluen 2 PCR Nasal Parainfluen 3 PCR Nasal Parainfluen 4 PCR Nasal RSV (PCR) Nasal B.pertussis DNA PCR Nasal C.pneumoniae (PCR) Donnie Human Metapneumo PCR Nasal M.pneumoniae (PCR) Nasal SARS-CoV-2 (PCR) Ethyl Alcohol < 5.0 mg/dL Assessment/Plan - Problem List (1) IDDM (insulin dependent diabetes mellitus) Impression: Patient admitted due to hypoglycemia with altered mental status. Blood sugar found to be 15 prior to hospital arrival subsequently increased and trending upward today over 300. Resuming home Lantus at a reduced dose with insulin sliding scale coverage. No evidence of DKA, or other metabolic disturbances. Underlying form setter/driver for hypoglycemia is not certain, patient may have accidentally injected too much insulin, but he does not think he did. He does however admit to eating less than usual prior to the hypoglycemia episode. Patient will need post discharge education and follow-up for blood sugar control and will reduce dose of basal insulin at discharge. Patient is improved but somewhat symptomatic still, so we will continue observation overnight, hopeful for discharge tomorrow. (2) HTN (hypertension) Impression: Blood pressure moderately elevated above goal for diabetes. Takes lisinopril 30 mg at home, will use 20 mg here given limited p.o. intake. Along with subjective dizziness, and risk of hypotension with orthostasis if overly aggressive antihypertensives used. (3) Hypoglycemia Impression: Resolved. As above, reasoning for hypoglycemia episode is not certain. Continue to educate patient on insulin administration techniques to avoid injecting too much, importance of eating regular meals, and will adjust dose of insulin at discharge. (4) Afib Impression: Anticoagulated on Xarelto. Admitted with a regular rate, but subsequently has developed A. fib with RVR. Resume home metoprolol and will add as needed IV metoprolol for rate control as well as IV fluids as patient likely hypovolemic given limited p.o. intake, and episode of vomiting.
[2020-11-12] MEDS ORDERED: diltiaZEM INJ 5 MG/ML VIAL IVP ONE (15:21)
[2020-11-12] MEDS ORDERED: NON FORMULARY MED (Rivaroxaban [Xarelto] 20 MG Tablet) PO SCH (17:00)
[2020-11-12] MEDS: RIVAROXABAN 10 MG TABLET PO SCH (17:00)
[2020-11-13] MEDS: ZOLPIDEM 5 MG TABLET PO PRN ×2 (00:39→20:10)
[2020-11-13] MEDS: SODIUM CHLORIDE 0.9% 1,000 ML IV SCH ×3 (00:39→23:44)
[2020-11-13] MEDS: METOPROLOL 5 MG/5 ML VIAL IVP PRN ×2 (01:24→08:12)
[2020-11-13] MEDS: SODIUM CHLORIDE FLUSH 0.9% 10 ML SYRINGE IVP SCH ×3 (01:47→18:50)
[2020-11-13] MEDS ORDERED: METOPROLOL 5 MG/5 ML VIAL IVP STA (03:47)
[2020-11-13] MEDS: ONDANSETRON 4 MG/2 ML VIAL IVP PRN (06:03)
[2020-11-13] MEDS ORDERED: PROMETHAZINE 25 MG TABLET PO PRN (07:58)
[2020-11-13] MEDS: INSULIN ASPART 300 UNIT/3 ML PEN SUBQ SCH ×4 (08:22→20:10)
[2020-11-13] MEDS ORDERED: diltiaZEM INJ 5 MG/ML VIAL IVP ONE (09:12)
--- NOTE | 2020-11-13 09:21 | PROVIDER PROGRESS NOTE ---
Subjective - Prog Note Date Prog Note Date: 11/13/20 Prog Note Time: 09:18 - Subjective Pt reports feeling: No change Subjective: Serjio continues to complain of nausea, and generally feeling unwell. Current Medications - Current Medications Current Medications: Current Medications Generic Name Dose Route Start Last Admin Trade Name Freq PRN Reason Stop Dose Admin Sodium Chloride 1,000 mls @ 83.333 mls/hr 11/12/20 13:00 11/13/20 00:39 Normal Saline 0.9% IV 83.3 mls/hr .Q12H ALIZE Administration Insulin Aspart 1 - 5 unit 11/11/20 21:00 11/13/20 08:22 Insulin Aspart 300 Unit/3 Ml Pen SUBQ 5 unit 0800,1200,1700,2100 ALIZE Administration Protocol Lisinopril 20 mg 11/12/20 13:00 11/12/20 13:03 Lisinopril 20 Mg Tablet PO 20 mg DAILY ALIZE Administration Metoprolol Succinate 100 mg 11/12/20 09:00 11/12/20 08:12 Metoprolol Succinate 50 Mg Tablet PO 100 mg DAILY ALIZE Administration Metoprolol Tartrate 5 mg 11/12/20 13:52 11/13/20 08:12 Metoprolol 5 Mg/5 Ml Vial IVP 5 mg Q6H PRN Administration Tachycardia Nicotine 1 patch 11/11/20 22:20 11/12/20 08:10 Nicotine 7 Mg Patch TOP 1 patch DAILY ALIZE Administration Ondansetron HCl 4 mg 11/11/20 20:34 11/13/20 06:03 Ondansetron 4 Mg/2 Ml Vial IVP 4 mg Q6HR PRN Administration Nausea / Vomiting Promethazine HCl 25 mg 11/13/20 07:58 11/13/20 08:21 Promethazine 25 Mg Tablet PO 25 mg Q6HR PRN Administration Nausea / Vomiting Rivaroxaban 20 mg 11/12/20 17:00 11/12/20 17:00 Rivaroxaban 10 Mg Tablet PO 20 mg QDDINNER ALIZE Administration Sodium Chloride 10 ml 11/11/20 20:34 11/12/20 11:40 Sodium Chloride Flush 0.9% 10 Ml Syringe IVP 10 ml PRN PRN Administration NEEDED PER PROVIDER ORDERS Sodium Chloride 10 ml 11/12/20 01:00 11/13/20 01:47 Sodium Chloride Flush 0.9% 10 Ml Syringe IVP Not Given 0100,0900,1700 [facility] Zolpidem Tartrate 5 mg 11/13/20 00:32 11/13/20 00:39 Zolpidem 5 Mg Tablet PO 5 mg QPM PRN Administration Insomnia Objective - Vital Signs/Intake & Output Reviewed Vital Signs: Yes Vital Signs: Vital Signs x48h Temp Pulse Pulse Resp BP BP BP 11/13/20 08:42 155/88 H 11/13/20 08:12 147/91 H 11/13/20 08:10 36.9 C 105 H 18 156/88 H 11/13/20 05:43 36.8 C 135 H 20 147/81 H 11/13/20 04:31 139 H 152/106 H 11/13/20 04:25 154/99 H 11/13/20 03:28 139 H 148/93 H 11/13/20 02:48 132 H 11/13/20 01:54 133 H 146/72 H 11/13/20 01:46 140 H 146/72 H 11/13/20 01:31 140 H 139/71 H 11/13/20 01:24 143/90 H Pulse Ox 11/13/20 08:42 11/13/20 08:12 11/13/20 08:10 97 11/13/20 05:43 97 11/13/20 04:31 11/13/20 04:25 11/13/20 03:28 11/13/20 02:48 11/13/20 01:54 11/13/20 01:46 11/13/20 01:31 11/13/20 01:24 Intake & Output: Intake & Output 11/10/20 11/11/20 11/12/20 11/13/20 23:59 23:59 23:59 23:59 Intake Total 500 1196 1165.274 Output Total 0830 1225 Balance 451 -8335 -356.282 - Objective General Appearance: positive: Mild distress (Patient appears uncomfortable, fatigued) Eyes Bilateral: positive: Normal inspection Neck: positive: Nml inspection, Thyroid nml, No JVD Respiratory: positive: Chest non-tender, No respiratory distress, Breath sounds nml Cardiovascular: positive: No murmur, No gallop, Irregularly irregular, Tachycardia Abdomen: positive: Non-tender, Nml bowel sounds Skin: positive: Color nml, No rash Extremities: positive: Nml appearance Neurologic/Psychiatric: positive: Oriented x3, CN's nml (2-12), Motor nml, Sensation nml - Lab Results Fish Bones: 11/11/20 18:48 11/12/20 07:04 Other Labs: Lab Results x24hrs 11/12/20 Range/Units 07:04 Estimat Average Glucose 192 H (70-100) mg/dL Hemoglobin A1c % 8.3 H (4.27-6.07) % ABX Reporting Has patient been on IV antibiotics over the past 48 hours?: No Assessment/Plan - Problem List (1) Atrial fibrillation and flutter Impression: Patient going into A. fib with RVR intermittently yesterday, now sustained throughout the night. He has not responded to multiple doses of IV metoprolol, and a single dose of IV diltiazem. He is also been having significant enough nausea with vomiting making it difficult to rely on p.o. medications. Underlying etiology of the RVR is not certain, and may be either the cause or effect of the nausea. We will check an echocardiogram. We will start IV diltiazem infusion and transferred patient to ICU. (2) IDDM (insulin dependent diabetes mellitus) Impression: Patient with known history of type 1 diabetes History of poor glycemic control, followed by diabetic clinic at the [facility], has been improving somewhat with most recent A1c down to 8 from 10. Hypoglycemia episode leading to hospitalization has occurred before, unclear if this is due to poor awareness, accidental incorrect dosing, poor p.o. intake, or combination of all of the above. Blood sugar now elevated over 300 Due to limited p.o. intake with continued nausea, will initiate basal insulin slowly. Compared with home dose of 21 units Lantus nightly, will start 5 units Lantus twice daily with correction sliding scale (3) HTN (hypertension) Impression: Blood pressure intermittently high versus well-controlled Resuming home Lisinopril at a reduced dose of 20 mg daily Continue metoprolol Due to A. fib with RVR will be on diltiazem infusion, monitor BP carefully (4) Hypoglycemia Impression: As above Resolved Continue diabetes management
[2020-11-13] MEDS: diltiaZEM INJ 125 MG in DEXTROSE 5% 100 ML IV SCH ×2 (09:45→17:14)
[2020-11-13] MEDS: lisinopriL 20 MG TABLET PO SCH (10:54)
[2020-11-13] MEDS: METOPROLOL SUCCINATE 50 MG TABLET PO SCH (10:55)
[2020-11-13] MEDS: NICOTINE 7 MG PATCH TOP SCH (12:19)
[2020-11-13] MEDS ORDERED: INSULIN ASPART 300 UNIT/3 ML PEN SUBQ ONE (16:06)
[2020-11-13] MEDS: ACETAMINOPHEN 325 MG TABLET PO PRN ×2 (16:20→20:09)
[2020-11-13] MEDS: RIVAROXABAN 10 MG TABLET PO SCH (17:14)
[2020-11-13] MEDS ORDERED: INSULIN GLARGINE 300 UNIT/3 ML PEN SUBQ SCH (21:00)
[2020-11-14] MEDS: diltiaZEM INJ 125 MG in DEXTROSE 5% 100 ML IV SCH (01:01)
[2020-11-14] MEDS: SODIUM CHLORIDE FLUSH 0.9% 10 ML SYRINGE IVP SCH ×2 (02:13→10:59)
[2020-11-14] MEDS: METOPROLOL 5 MG/5 ML VIAL IVP PRN (04:55)
[2020-11-14] MEDS: SODIUM CHLORIDE FLUSH 0.9% 10 ML SYRINGE IVP PRN (04:56)
[2020-11-14 07:56] LABS: BASOPHILS # (AUTO) 0.1 10^3/uL (0.0-0.1); BASOPHILS % (AUTO) 0.7 %; EOSINOPHILS # (AUTO) 0.5 10^3/uL (0.0-0.7); EOSINOPHILS % (AUTO) 5.6 %; HCT - HEMATOCRIT 42.4 % (42.0-52.0); HGB - HEMOGLOBIN 14.8 g/dL (14.0-18.0); LYMPHOCYTES # (AUTO) 2.2 10^3/uL (1.5-3.5); LYMPHOCYTES % (AUTO) 26.3 %; MEAN CORPUSCULAR HEMOGLOBIN 33.6 pg (27.0-31.0); MEAN CORPUSCULAR HGB CONC 34.9 g/dL (32.0-36.0); MEAN CORPUSCULAR VOLUME 96.4 fL (80.0-94.0); MEAN PLATELET VOLUME 10.5 fL (7.4-11.4); MONOCYTES # (AUTO) 0.7 10^3/uL (0.0-1.0); MONOCYTES % (AUTO) 8.8 %; NEUTROPHILS # (AUTO) 4.8 10^3/uL (1.5-6.6); NEUTROPHILS % (AUTO) 58.4 %; PLT - PLATELET COUNT 231 10^3/uL (130-450); RED CELL DISTRIBUTION WIDTH 12.7 % (12.0-15.0); WHITE BLOOD COUNT 8.2 x10^3/uL (4.8-10.8)
[2020-11-14] MEDS ORDERED: INSULIN GLARGINE 300 UNIT/3 ML PEN SUBQ SCH ×2 (08:00→21:00)
[2020-11-14 08:07] LABS: CALCIUM 8.5 mg/dL (8.5-10.3); CREATININE 0.7 mg/dL (0.6-1.2); POTASSIUM 4.4 mmol/L (3.5-5.0)
[2020-11-14] MEDS: INSULIN ASPART 300 UNIT/3 ML PEN SUBQ SCH ×4 (08:26→12:04)
[2020-11-14] MEDS ORDERED: lisinopriL 20 MG TABLET PO SCH (09:00)
[2020-11-14] MEDS: METOPROLOL SUCCINATE 50 MG TABLET PO SCH (09:57)
[2020-11-14] MEDS ORDERED: ATROPINE ABBOJECT 1 MG/10 ML SYRINGE IVP ONE (10:11)
[2020-11-14] MEDS: ACETAMINOPHEN 325 MG TABLET PO PRN (10:59)
[2020-11-14] MEDS: NICOTINE 7 MG PATCH TOP SCH (10:59)
--- NOTE | 2020-11-14 12:45 | DISCHARGE SUMMARY ---
"Discharge Summary Admit Date: 11/11/20 Discharge Date: 11/14/20 Discharging Provider: Akhil Babb Primary Care Provider: Willian Brooks Code Status: Attempt Resuscitation Condition at Discharge: Serious Discharge Disposition: 02 Transfer Acute Care Hosp [facility] - DIAGNOSES Admission Diagnoses: Hypoglycemia Insulin-dependent diabetes mellitus Hypertension A. fib Discharge Diagnoses with Status of Each Condition: Sick sinus syndrome - ongoing. Atrial flutter and fibrillation - ongoing. Insulin-dependent diabetes mellitus - stable. Hypertension - stable. Hypoglycemia - resolved. - HPI History of Present Illness: H&P per Dr. Garay: This is a 60-year-old white male with a history of insulin-dependent diabetes, A. fib on Xarelto and history of hypertension. He has had hypoglycemia 3-4 years ago from taking his Insulin dose but not eating. The patient presented to the ED by ambulance. He was at home with friends and they noticed he was acting confused and sleepy and they called 911. His fingerstick glucose checked by paramedics was 15. They administered D50 and his glucose went up to 180. In the ED, his serum glucose again dropped to 70 and then on repeat was 80 and the patient continued to have fogginess. He states that he took his usual Insulin amounts but only ate half of his usual meal, but denied N/V/D abdominal pain, fever or any other symptoms. He is being placed in Observation status to monitor glucoses frequently overnight so that there are no further severe drops in serum glucose levels. - CONSULTS | PROCEDURES Consultations: [employer] Procedures: Echocardiogram on November 13 showed mild concentric left ventricular hypertrophy. Ejection fraction of 65 to 70%. Right ventricle is normal in size and function. No hemodynamically significant valvular disease. The underlying rhythm is atrial flutter with rapid ventricular response. - HOSPITAL COURSE Hospital Course: Initially placed in observation for the hypoglycemia. His blood glucose was 15 in the emergency department and he responded well initially to dextrose but he did have a downward trend in his blood glucose as it later decreased to 70 and so we admitted him for this. His blood glucose is monitored every 2 hours and his blood glucose improved to 150. He did not require dextrose. He then became hypoglycemic with a blood glucose over 300. He did not have evidence of DKA. His home Lantus was resumed but at a reduced dose of 5 units twice daily and he was continued on a sliding scale. Despite this, he remained hyperglycemic and we have now resumed his home dose of Lantus. It was felt that he was likely hypoglycemic initially as he had been complaining of nausea and decreased oral intake. He has been tolerating a diet throughout this hospitalization. The plan was to discharge him home the following day but unfortunately, he went into atrial relation with rapid ventricular response. He required multiple doses of IV metoprolol and diltiazem without improvement in his heart rate and there was now concern with his nausea and episode of emesis that he may unable to tolerate p.o. medications and so he was placed in the intensive care unit for IV diltiazem infusion. An echocardiogram was obtained which showed a preserved ejection fraction without significant valvular disease. Unfortunately while on the diltiazem infusion, he had multiple 7-second pauses and would become bradycardic down into the 30s and he was symptomatic with this. The diltiazem was then discontinued and he was monitored for 2 to 3 hours. He remained tachycardic then and so we initiated the diltiazem infusion again at a lower dose of 5 mg an hour but immediately he had recurrent pauses and symptomatic bradycardia and so the diltiazem was discontinued. Despite discontinuing the diltiazem, he continued to have transient bradycardia with heart rates as low as the 30s. I spoke with cardiology at [facility] in [place] as I felt the patient would likely need a pacemaker for sick sinus syndrome. I spoke with Dr. Joel of cardiology who agreed that the patient should be transferred for further evaluation and consideration of a pacemaker. He asked that I speak with the hospitalist service and I spoke with Dr. Manning who graciously accepted the patient to her service. At this time remains off of all infusions. His heart rate is in the 130s but he will have transient episodes where he will decrease to the 30s and 40s but this will usually last for about 15 to 20 seconds before it becomes tachycardic again. He has no symptoms when he is tachycardic. He will be transferred via ALS because if he does become bradycardic for extended period of time and then he may need temporary pacing. The patient was updated on the plan and he is agreeable to it. - ALLERGIES Allergies/Adverse Reactions: Allergies Allergy/AdvReac Type Severity Reaction Status Date / Time No Known Drug Allergies Allergy Verified 11/11/20 18:30 - MEDICATIONS Home Medications: Ambulatory Orders Medication Instructions Recorded Confirmed Insulin Aspart [Novolog] 3 - 12 unit SQ TIDWM 04/14/14 11/11/20 Insulin Glargine [Lantus Solostar] 21 unit SUBQ QPM 04/14/14 11/11/20 Rivaroxaban [Xarelto] 20 mg PO QDDINNER 04/14/14 11/11/20 Metoprolol Succinate 100 mg PO DAILY 11/11/20 11/11/20 Lisinopril [Zestril] 30 mg PO DAILY 11/12/20 11/12/20 - PHYSICAL EXAM AT DISCHARGE General Appearance: positive: No acute distress, Alert Eyes Bilateral: positive: Normal inspection, Conjunctivae nml ENT: positive: ENT inspection nml Respiratory: positive: No respiratory distress. negative: Wheezes, Rales Cardiovascular: positive: Irregularly irregular, Tachycardia. negative: Bradyca rdia, Systolic murmur Abdomen: positive: Non-tender, No distention. negative: Tenderness, Guarding, Rebound Skin: positive: Warm, Dry Extremities: positive: No pedal edema Neurologic/Psychiatric: positive: Motor nml. negative: Disoriented to person, Disoriented to place Physical Exam Other/Comments: Vital Signs - 24 hr 11/13/20 11/13/20 11/13/20 18:00 19:00 20:00 Temperature 37.1 C Heart Rate [ 150 H 147 H 136 H Monitoring electrodes] Respiratory 17 15 16 Rate Blood Pressure Blood Pressure 103/66 120/76 113/78 [Right Brachial artery] O2 Saturation 96 96 11/13/20 11/13/20 11/13/20 21:00 22:00 23:00 Temperature Heart Rate [ 101 H 104 H 140 H Monitoring electrodes] Respiratory 15 22 15 Rate Blood Pressure Blood Pressure 96/57 L 100/63 106/54 L [Right Brachial artery] O2 Saturation 96 11/14/20 11/14/20 11/14/20 00:00 01:00 02:00 Temperature 37.1 C Heart Rate [ 114 H 101 H 134 H Monitoring electrodes] Respiratory 23 17 15 Rate Blood Pressure Blood Pressure 99/67 89/58 L 128/94 H [Right Brachial artery] O2 Saturation 98 95 11/14/20 11/14/20 11/14/20 03:00 04:00 04:55 Temperature 37.1 C Heart Rate [ 118 H 134 H Monitoring electrodes] Respiratory 13 16 Rate Blood Pressure 122/88 H Blood Pressure 85/67 L 106/66 [Right Brachial artery] O2 Saturation 96 11/14/20 11/14/20 11/14/20 05:00 06:00 07:00 Temperature 37.1 C Heart Rate [ 126 H 124 H 124 H Monitoring electrodes] Respiratory 15 15 16 Rate Blood Pressure 110/77 Blood Pressure 106/71 110/77 100/68 [Right Brachial artery] O2 Saturation 97 100 11/14/20 11/14/20 11/14/20 07:38 07:55 08:00 Temperature 36.7 C 36.7 C Heart Rate [ 130 H 145 H Monitoring electrodes] Respiratory 12 15 Rate Blood Pressure Blood Pressure 115/77 101/89 H [Right Brachial artery] O2 Saturation 98 98 11/14/20 11/14/20 11/14/20 09:00 10:00 11:00 Temperature Heart Rate [ 149 H 132 H 130 H Monitoring electrodes] Respiratory 15 14 13 Rate Blood Pressure Blood Pressure 103/72 103/74 118/82 H [Right Brachial artery] O2 Saturation 97 96 97 11/14/20 11/14/20 11/14/20 13:00 14:00 14:50 Temperature Heart Rate [ 151 H 147 H 60 Monitoring electrodes] Respiratory 15 16 13 Rate Blood Pressure Blood Pressure 122/89 H 124/93 H 129/77 [Right Brachial artery] O2 Saturation 98 11/14/20 15:00 Temperature Heart Rate [ 142 H Monitoring electrodes] Respiratory 15 Rate Blood Pressure Blood Pressure 121/78 [Right Brachial artery] O2 Saturation Oxygen O2 Source Room air - LABS Result Diagrams: 11/14/20 07:49 11/14/20 07:49 - DIAGNOSTIC IMAGING Diagnostic Imaging Results: Final report reviewed - TIME SPENT Time Spent in Discharge (Minutes): 48"
[2020-11-14 15:02] VITALS: BP 121/78
== END 2020-11-14 16:00 | disposition short-term general hospital (02) | DRG 638 ==
LOC: EDUNIT# → ED 18:27 → SUPCPDRO 18:27 → MS2 20:33 → OBSVTOIN 11-12 16:19 → ICU 11-13 09:56
PROVIDERS: ADMIT Internal Medicine; ATTEND Internal Medicine
DX: E10.649 Type 1 diabetes mellitus with hypoglycemia without coma (principal); I48.92 Unspecified atrial flutter; I10 Essential (primary) hypertension; Z20.822 Contact with and (suspected) exposure to COVID-19; I50.30 Unspecified diastolic (congestive) heart failure; I11.0 Hypertensive heart disease with heart failure; E10.65 Type 1 diabetes mellitus with hyperglycemia; I48.91 Unspecified atrial fibrillation; I49.5 Sick sinus syndrome; Z79.4 Long term (current) use of insulin; Z79.01 Long term (current) use of anticoagulants; E10.42 Type 1 diabetes mellitus with diabetic polyneuropathy; M72.0 Palmar fascial fibromatosis [Dupuytren]; F17.210 Nicotine dependence, cigarettes, uncomplicated; R11.2 Nausea with vomiting, unspecified; R41.82 Altered mental status, unspecified
CPT/HCPCS: 36415; 80048; 83036; 84484; 85025; 87150; 87631; 93306; 96374; 96375; 99285; A9270; G0378; G0480; J1815; Q0169; 0202U; 80320

== ENCOUNTER 2021-03-29 15:25 | Outpatient (CLI) | payer MEDICARE, MEDICAID | END 2021-03-29 23:59 | disposition short-term general hospital (02) | LOC: EMS 15:25 | DX: R51.9 Headache, unspecified (principal); I48.92 Unspecified atrial flutter | CPT/HCPCS: A0425; A0427 ==

== ENCOUNTER 2021-11-12 09:43 | Outpatient (CLI) | payer MEDICARE, MEDICAID ==
[2021-11-12 15:31] LABS: CREATININE,URINE 217.8 mg/dL; MICROALBUM/CREATININE RATIO,UR 149.2 ug/mg (<30.0); MICROALBUMIN,URINE 32.5 mg/dL (0-300.0)
[2021-11-12 20:16] LABS: ESTIMATED AVERAGE GLUCOSE 235 mg/dL (70-100); HEMOGLOBIN A1c% 9.8 % (4.27-6.07)
== END 2021-11-12 09:44 | disposition home or self-care (01) ==
LOC: LAB.S 09:43
PROVIDERS: ATTEND Registered Nurse
DX: E11.8 Type 2 diabetes mellitus with unspecified complications (principal)
CPT/HCPCS: 36415; 82043; 82570; 83036

== ENCOUNTER 2022-02-22 14:37 | Outpatient (CLI) | payer MEDICARE, MEDICAID ==
[2022-02-22 20:08] LABS: BUN - BLOOD UREA NITROGEN 17 mg/dL (6-20); CALCIUM 9.2 mg/dL (8.5-10.3); CARBON DIOXIDE - CO2 28 mmol/L (21-32); CHLORIDE 101 mmol/L (101-111); CHOL/HDL RATIO 3.5 (<5.0); CHOLESTEROL 251 mg/dL; CREATININE 1.1 mg/dL (0.6-1.2); GFR - MDRD 68 (>89); GLUCOSE 125 mg/dL (70-100); HDL CHOLESTEROL 71 mg/dL; LDL CHOLESTEROL,CALCULATED 149 mg/dL; LDL/HDL RATIO 2.1 (<3.6); POTASSIUM 4.6 mmol/L (3.5-5.0); SODIUM 137 mmol/L (135-145); TRIGLYCERIDES 153 mg/dL; VLDL CHOLESTEROL 31 mg/dL
[2022-02-22 20:11] LABS: CREATININE,URINE 230.3 mg/dL; MICROALBUM/CREATININE RATIO,UR 45.6 ug/mg (<30.0); MICROALBUMIN,URINE 10.5 mg/dL (0-300.0)
[2022-02-22 21:39] LABS: ESTIMATED AVERAGE GLUCOSE 217 mg/dL (70-100); HEMOGLOBIN A1c% 9.2 % (4.27-6.07)
== END 2022-02-22 14:38 | disposition home or self-care (01) ==
LOC: LAB.S 14:37
PROVIDERS: ATTEND Nurse Practitioner
DX: E10.65 Type 1 diabetes mellitus with hyperglycemia (principal); E78.2 Mixed hyperlipidemia
CPT/HCPCS: 36415; 80048; 80061; 82043; 82570; 83036; 83721

== ENCOUNTER 2022-11-01 13:22 | Outpatient (CLI) | payer MEDICARE, MEDICAID ==
[2022-11-01 20:21] LABS: CALCIUM 9.1 mg/dL (8.5-10.3); CREATININE 0.8 mg/dL (0.6-1.3); POTASSIUM 3.8 mmol/L (3.5-4.5)
[2022-11-01 20:30] LABS: CREATININE,URINE 173.1 mg/dL; MICROALBUM/CREATININE RATIO,UR 53.7 ug/mg (<30.0); MICROALBUMIN,URINE 9.3 mg/dL
[2022-11-02 07:44] LABS: ESTIMATED AVERAGE GLUCOSE 203 mg/dL (70-100); HEMOGLOBIN A1c% 8.7 % (4.27-6.07)
== END 2022-11-01 13:23 | disposition home or self-care (01) ==
LOC: LAB.S 13:22
PROVIDERS: ATTEND Registered Nurse
DX: E10.9 Type 1 diabetes mellitus without complications (principal)
CPT/HCPCS: 36415; 80048; 82043; 82570; 83036

== ENCOUNTER 2023-07-11 21:57 | Outpatient (CLI) | payer MEDICARE, MEDICAID | END 2023-07-11 23:59 | disposition critical access hospital (66) | LOC: EMS 21:57 | DX: R51.9 Headache, unspecified (principal); V48.5XXA Car driver injured in noncollision transport accident in traffic accident, initial encounter; Y92.414 Local residential or business street as the place of occurrence of the external cause; E10.649 Type 1 diabetes mellitus with hypoglycemia without coma; Z79.01 Long term (current) use of anticoagulants | CPT/HCPCS: A0425; A0429 ==

== ENCOUNTER 2023-07-11 22:22 | Emergency (ER) | payer MEDICARE, MEDICAID ==
[2023-07-11] MEDS: DEXTROSE 5%-0.9% NACL 1,000 ML IV STA (22:51)
[2023-07-11 23:13] LABS: BASOPHILS # (AUTO) 0.1 10^3/uL (0.0-0.1); BASOPHILS % (AUTO) 0.6 %; EOSINOPHILS # (AUTO) 0.2 10^3/uL (0.0-0.7); EOSINOPHILS % (AUTO) 1.4 %; HCT - HEMATOCRIT 39.3 % (42.0-52.0); HGB - HEMOGLOBIN 13.4 g/dL (14.0-18.0); LYMPHOCYTES # (AUTO) 1.2 10^3/uL (1.5-3.5); LYMPHOCYTES % (AUTO) 11.2 %; MEAN CORPUSCULAR HEMOGLOBIN 33.2 pg (27.0-31.0); MEAN CORPUSCULAR HGB CONC 34.1 g/dL (32.0-36.0); MEAN CORPUSCULAR VOLUME 97.3 fL (80.0-94.0); MEAN PLATELET VOLUME 10.9 fL (7.4-11.4); MONOCYTES # (AUTO) 0.8 10^3/uL (0.0-1.0); MONOCYTES % (AUTO) 7.2 %; NEUTROPHILS # (AUTO) 8.6 10^3/uL (1.5-6.6); NEUTROPHILS % (AUTO) 79.3 %; PLT - PLATELET COUNT 275 10^3/uL (130-450); RED BLOOD COUNT 4.04 10^6/uL (4.70-6.10); RED CELL DISTRIBUTION WIDTH 12.5 % (12.0-15.0); WHITE BLOOD COUNT 10.9 x10^3/uL (4.8-10.8)
[2023-07-11 23:32] LABS: ETOH - ETHANOL < 10.0 mg/dL; LIPASE 23 U/L (11-82)
[2023-07-11 23:35] LABS: ALBUMIN 4.9 g/dL (3.2-5.5); ALBUMIN/GLOBULIN RATIO 1.7 (1.0-2.2); ALKALINE PHOSPHATASE 102 IU/L (42-121); ALT ALANINE AMINOTRANSFERASE 18 IU/L (10-60); AST ASPARTATE AMINOTRANSFERASE 28 IU/L (10-42); BILIRUBIN,TOTAL 0.5 mg/dL (0.2-1.0); BUN - BLOOD UREA NITROGEN 23 mg/dL (6-20); CALCIUM 10.8 mg/dL (8.5-10.3); CARBON DIOXIDE - CO2 26 mmol/L (21-32); CHLORIDE 103 mmol/L (101-111); CREATININE 0.9 mg/dL (0.6-1.3); GFR - MDRD 85 (>89); GLUCOSE 44 mg/dL (74-104); POTASSIUM 3.8 mmol/L (3.5-4.5); SODIUM 141 mmol/L (135-145); TOTAL PROTEIN 7.8 g/dL (6.4-8.9)
[2023-07-11 23:52] LABS: INR 1.4 (0.8-1.2); PT - PROTHROMBIN TIME 14.4 secs (9.9-12.6)
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
[2023-07-12 02:06] VITALS: BP 172/82; O2SAT 99
== END 2023-07-12 02:09 | disposition home or self-care (01) ==
LOC: EDUNIT# → ED 22:22
DX: S09.90XA Unspecified injury of head, initial encounter (principal); V58.5XXA Driver of pick-up truck or van injured in noncollision transport accident in traffic accident, initial encounter; Y93.89 Activity, other specified; Y92.89 Other specified places as the place of occurrence of the external cause; E10.649 Type 1 diabetes mellitus with hypoglycemia without coma; Z79.4 Long term (current) use of insulin; I48.91 Unspecified atrial fibrillation; Z79.01 Long term (current) use of anticoagulants; F17.200 Nicotine dependence, unspecified, uncomplicated
CPT/HCPCS: 36415; 70450; 71045; 72125; 72170; 80053; 83690; 85025; 85610; 96360; 96361; 99284; G0480; 81001; 81003; 82077; 87086

== ENCOUNTER 2023-09-19 09:05 | Outpatient (CLI) | payer MEDICARE, MEDICAID ==
[2023-09-19 14:17] LABS: BASOPHILS # (AUTO) 0.1 10^3/uL (0.0-0.1); BASOPHILS % (AUTO) 0.9 %; EOSINOPHILS # (AUTO) 0.3 10^3/uL (0.0-0.7); EOSINOPHILS % (AUTO) 5.5 %; HCT - HEMATOCRIT 45.1 % (42.0-52.0); HGB - HEMOGLOBIN 14.9 g/dL (14.0-18.0); LYMPHOCYTES # (AUTO) 2.1 10^3/uL (1.5-3.5); LYMPHOCYTES % (AUTO) 37.1 %; MEAN CORPUSCULAR HEMOGLOBIN 32.5 pg (27.0-31.0); MEAN CORPUSCULAR VOLUME 98.3 fL (80.0-94.0); MEAN PLATELET VOLUME 12.3 fL (7.4-11.4); MONOCYTES # (AUTO) 0.5 10^3/uL (0.0-1.0); MONOCYTES % (AUTO) 8.4 %; NEUTROPHILS # (AUTO) 2.7 10^3/uL (1.5-6.6); NEUTROPHILS % (AUTO) 47.9 %; PLT - PLATELET COUNT 277 10^3/uL (130-450); RED BLOOD COUNT 4.59 10^6/uL (4.70-6.10); RED CELL DISTRIBUTION WIDTH 13.3 % (12.0-15.0); WHITE BLOOD COUNT 5.6 x10^3/uL (4.8-10.8)
[2023-09-19 14:47] LABS: ALBUMIN 4.4 g/dL (3.2-5.5); ALBUMIN/GLOBULIN RATIO 1.6 (1.0-2.2); ALKALINE PHOSPHATASE 96 IU/L (42-121); ALT ALANINE AMINOTRANSFERASE 15 IU/L (10-60); AST ASPARTATE AMINOTRANSFERASE 21 IU/L (10-42); BILIRUBIN,TOTAL 0.8 mg/dL (0.2-1.0); BUN - BLOOD UREA NITROGEN 14 mg/dL (6-20); CALCIUM 9.5 mg/dL (8.5-10.3); CARBON DIOXIDE - CO2 30 mmol/L (21-32); CHLORIDE 100 mmol/L (101-111); CHOL/HDL RATIO 2.7 (<5.0); CHOLESTEROL 182 mg/dL; CREATININE 0.8 mg/dL (0.6-1.3); GFR - MDRD 97 (>89); GLUCOSE 233 mg/dL (74-104); HDL CHOLESTEROL 68 mg/dL; LDL CHOLESTEROL,CALCULATED 100 mg/dL; LDL/HDL RATIO 1.5 (<3.6); POTASSIUM 3.6 mmol/L (3.5-4.5); SODIUM 136 mmol/L (135-145); TOTAL PROTEIN 7.2 g/dL (6.4-8.9); TRIGLYCERIDES 70 mg/dL (48-352); VLDL CHOLESTEROL 14 mg/dL
[2023-09-19 14:52] LABS: CREATININE,URINE 250.4 mg/dL; MICROALBUM/CREATININE RATIO,UR 38.3 ug/mg (<30.0); MICROALBUMIN,URINE 9.6 mg/dL
[2023-09-19 21:24] LABS: ESTIMATED AVERAGE GLUCOSE 229 mg/dL (70-100); HEMOGLOBIN A1c% 9.6 % (4.27-6.07)
== END 2023-09-19 09:06 | disposition home or self-care (01) ==
LOC: LAB.S 09:05
PROVIDERS: ATTEND Registered Nurse
DX: E10.9 Type 1 diabetes mellitus without complications (principal); Z12.5 Encounter for screening for malignant neoplasm of prostate; Z13.228 Encounter for screening for other metabolic disorders; Z13.220 Encounter for screening for lipoid disorders; Z13.29 Encounter for screening for other suspected endocrine disorder; Z13.0 Encounter for screening for diseases of the blood and blood-forming organs and certain disorders involving the immune mechanism
CPT/HCPCS: 36415; 80053; 80061; 82043; 82570; 83036; 84443; 85025; G0103; 83721; 84153